=== PATIENT | male | born 1945 ===

== ENCOUNTER → 2021-09-08 | Outpatient (CLI) | payer BC, MEDICARE ==
--- NOTE | 2021-09-08 10:41 | RAD ---
EXAM: Right lower extremity arterial Doppler sonogram. HISTORY: Claudication. Hypertension. Atherosclerosis. TECHNIQUE: Oreilly scale and color Doppler sonographic evaluation of the right lower extremity arteries with spectral waveform analysis was performed. FINDINGS: There are biphasic waveforms throughout the lower extremity arteries, with exception of a t riphasic waveform within the common femoral artery. There are normal peak systolic velocities through out the lower extremity arteries. There is mild atherosclerotic plaque throughout the right lower ext remity arteries. IMPRESSION: 1. No Doppler evidence of hemodynamically significant stenosis or occlusion involving the right lower extremity arteries. 2. Mild right lower extremity atherosclerosis. Electronically signed by: Suzan Matos MD (09/08/2021 10:38 AM) [id number]
== END ==
LOC: US 09:33
PROVIDERS: ATTEND Family Medicine
DX: I70.201 Unspecified atherosclerosis of native arteries of extremities, right leg (principal)
CPT/HCPCS: 93926